=== PATIENT | female | born 1960 | race Caucasian/White ===

== ENCOUNTER → 2021-12-07 | Day surgery (SDC) | payer OTHER ==
[~2021-12-07] MED LIST: HYOSCYAMINE SULFATE 0.5 MG/ML INJ ONE; PROBIOTIC & AC1 EACH PO; PROPOFOL IV EMULSION 10 MG/ML 20 ML VIAL ONE; SYNTHROID125 MCG PO; TIZANIDINE HCL4 MG PO; ZETIA10 MG PO
[2021-12-07 16:35] VITALS: BP 122/76
== END | disposition home or self-care (01) ==
LOC: OR 13:00
PROVIDERS: ATTEND Internal Medicine Gastroenterology
DX: Z12.11 Encounter for screening for malignant neoplasm of colon (principal); D12.0 Benign neoplasm of cecum; K57.30 Diverticulosis of large intestine without perforation or abscess without bleeding; K64.8 Other hemorrhoids; E03.9 Hypothyroidism, unspecified; I10 Essential (primary) hypertension; E78.00 Pure hypercholesterolemia, unspecified; Z01.810 Encounter for preprocedural cardiovascular examination; Z01.812 Encounter for preprocedural laboratory examination; Z20.822 Contact with and (suspected) exposure to COVID-19; Z79.899 Other long term (current) drug therapy; Z68.31 Body mass index [BMI] 31.0-31.9, adult
CPT/HCPCS: 45380; 93005; J1980; J2704; U0002; 45378